=== PATIENT | male | born 1990 | race African-American/Black ===

== ENCOUNTER 2019-09-08 01:24 | Emergency (ER) | payer SELFPAY ==
[2019-09-08] MEDS ORDERED: Dicyclomine 20 MG TAB ONE (01:49)
== END 2019-09-08 02:10 | disposition home or self-care (01) ==
LOC: NAV ERS 01:24
DX: K52.9 Noninfective gastroenteritis and colitis, unspecified (principal); R55 Syncope and collapse; F41.9 Anxiety disorder, unspecified; F32.9 Major depressive disorder, single episode, unspecified; Z87.891 Personal history of nicotine dependence
CPT/HCPCS: 99284

== ENCOUNTER 2023-08-24 14:40 | Emergency (ER) | payer OTHER ==
[2023-08-24] MEDS ORDERED: Boostrix 0.5 ML (Tdap) VIAL (>/=7 yrs of age) ONE (14:53)
[2023-08-24] MEDS ORDERED: CEFAZOLIN 1 GM VIAL ONE (15:34)
[2023-08-24] MEDS ORDERED: Sterile Water 10 ML ONE (15:34)
== END 2023-08-24 16:11 | disposition short-term general hospital (02) ==
LOC: NAV ERS 14:40
DX: S60.351A Superficial foreign body of right thumb, initial encounter (principal); W29.4XXA Contact with nail gun, initial encounter; Y93.89 Activity, other specified; Y92.69 Other specified industrial and construction area as the place of occurrence of the external cause; Z23 Encounter for immunization; Z87.891 Personal history of nicotine dependence
CPT/HCPCS: 90471; 90715; 96372; J0690

== ENCOUNTER 2024-11-20 13:19 | Emergency (ER) | payer SELFPAY ==
[2024-11-20] MEDS ORDERED: Acetaminophen 325 MG TAB ONE (14:09)
== END 2024-11-20 14:55 | disposition home or self-care (01) ==
LOC: NAV ERS 13:19
DX: S20.211A Contusion of right front wall of thorax, initial encounter (principal); M25.562 Pain in left knee; Z87.891 Personal history of nicotine dependence; V43.52XA Car driver injured in collision with other type car in traffic accident, initial encounter
CPT/HCPCS: 99284

== ENCOUNTER 2025-10-20 07:42 | Emergency (ER) | payer SELFPAY ==
[2025-10-20] MEDS ORDERED: Clindamycin 150 MG CAP ONE (08:18)
[2025-10-20] MEDS ORDERED: Naproxen 500 MG TAB ONE (08:18)
== END 2025-10-20 08:40 | disposition home or self-care (01) ==
LOC: NAV ERS 07:42
DX: H65.92 Unspecified nonsuppurative otitis media, left ear (principal); H61.21 Impacted cerumen, right ear; Z87.891 Personal history of nicotine dependence
CPT/HCPCS: 99283